=== PATIENT | male | born 1965 | race Caucasian/White ===

== ENCOUNTER 2021-05-14 00:06 | Emergency (ER) | payer SELFPAY ==
[2021-05-14 00:14] VITALS: BP 140/81; PULSE 67; RESP 18; TEMP 36.9; O2SAT 100
--- NOTE | 2021-05-14 01:09 | ED.EXTPRO ---
HPI - Extremity Problem General Chief complaint: Extremity Injury, Upper Stated complaint: swelling/numbness in arms Time Seen by Provider: 05/14/21 00:12 Source: patient Mode of arrival: Ambulatory History of Present Illness HPI Narrative: 56M smoker with noncontributory medical history presents with a chief complaint of popping and cracking in his shoulders and upper back for many months. He works a physical job and is constantly lifting and moving heavy objects and repetitive motion at work. He denies any specific trauma or injury. He denies any fever or chills. He states that often times at the end of the day his arms feel worn out and he gets some tingling which starts in his shoulders. He denies any numbness or weakness. He denies any radiation of pain. He states that this has been going on for many months. He denies those symptoms are any worse but the precipitating event that brought him in tonight was when he looked at his arm and noticed a quarter-sized bump on the dorsum of his forearm. He denied any pain, redness or red streaks. He states that it was there for ?a little while ?but had disappeared prior to his arrival. He is concerned that he has a blood clot. Patient denies any recent injury or trauma. He denies any history of blood clot. Review of Systems Review of Systems Narrative: GENERAL: Denies chills, fatigue, malaise, fever, sweats. HEENT: Denies sinus pain, ear pain, sore throat, difficulty swallowing, dizziness. RESPIRATORY: Denies dyspnea, cough, wheezing, hemoptysis, sputum. CARDIOVASCULAR: Denies chest pain, palpitations, orthopnea, edema, GASTROINTESTINAL: Denies nausea, vomiting, abdominal pain, diarrhea, constipation, melena. : Denies dysuria, frequency, incontinence, hematuria, urinary retention. MUSCULOSKELETAL: see HPI SKIN: Denies rash, skin lesions, or other NEUROLOGIC: Denies weakness, headache, numbness, change in speech, confusion, seizures, incoordination. PSYCHIATRIC: No concerning psychosocial issues. 12 point review of systems is negative except for those stated above Patient History Social History Smoking Status: Current every day smoker Smoking Status: Current every day smoker Exam Narrative Exam Narrative: GEN: AOx3 and in mild distress NECK: No midline pain or swelling, no symptoms with axial loading EYES: Pupils are equal, round, and reactive to light and accommodation. Extraoccular muscles are intact bilaterally. There is no subconjunctival hemorrhage or exudate. CHEST: Lungs are clear to auscultation bilaterally and free of wheezes, rales, or rhonchi. Heart rate is regular rhythm, there are no murmurs, clicks, rubs, or gallops. There is no chest wall tenderness. ABD: Abdomen is soft and nontender. There is no guarding or rebound. Bowel sounds are normal in all 4 quadrants. There is no mass or organomegaly. EXT: Full painless ROM of all extremities with no loss of sensation or strength. SKIN: No swelling, redness, induration, fluctuance or evidence of infection or DVT Warm, pink, and dry. No erythema or rash Initial Vital Signs Initial Vital Signs: Vital Signs Temperature 98.4 F 05/14/21 00:14 Pulse Rate 67 05/14/21 00:14 Respiratory Rate 18 05/14/21 00:14 Blood Pressure 140/81 05/14/21 00:14 Pulse Oximetry 100 05/14/21 00:14 Course Vital Signs Vital signs: Vital Signs - 8 hr 05/14/21 00:14 05/14/21 01:41 Temperature 98.4 F Pulse Rate 67 65 Respiratory Rate 18 18 Blood Pressure 140/81 138/80 Pulse Oximetry 100 100 MDM - Extremity (Nontraumatic) MDM Narrative Medical decision making narrative: Patient has a very reassuring physical exam as well as history. We had lengthy discussion about lack of history or physical to suggest any neuro surgical emergency. We discussed the possibility of obtaining imaging but sure the opinion that x-rays and CT are unlikely to be of much utility. Blood clot, infection considered but thought unlikely given lack of ongoing symptoms, any erythema, warmth or tenderness. Patient given extensive return precautions and questions have been answered to his apparent satisfaction Discharge Plan Departure Patient Disposition: Home Clinical Impression: Feared complaint without diagnosis Activity Restrictions/Additional Instructions: *You have been diagnosed with [possible arthritic change in your neck and shoulders, based on your history and exam there is no indication of blood clot or neuro surgical emergency *What to do: *Please continue to take your regular medications as directed. [ ] New medication prescriptions sent to your pharmacy: [ ] [ ] New medication written as a paper prescription [x ] No new medications given *Please follow up with your primary care provider in 2-3 days, call for an appointment. Let them know you were seen in the Emergency Department and that we ask that you be seen in follow up. We will electronically transmit a record of today's note if your PCP is in our system *If you do not have a primary care provider please contact the [facility] Resource line at [phone]. They will ask some questions about your medical history and help get you set up with a doctor in the community. *Return to Emergency Department if you should have any new, worsening or concerning symptoms, such as [fever greater than 101 F, shaking chills, worsening pain, persistent vomiting or other bothersome symptoms]
[2021-05-14 01:41] VITALS: BP 138/80; PULSE 65; RESP 18; O2SAT 100
== END 2021-05-14 01:42 | disposition home or self-care (01) ==
PROVIDERS: Emergency Provider Emergency Medicine
DX: M54.6 Pain in thoracic spine (principal); M25.512 Pain in left shoulder; M25.511 Pain in right shoulder
CPT/HCPCS: 99281

== ENCOUNTER 2021-05-30 16:41 | Emergency (ER) | payer SELFPAY ==
[2021-05-30 17:00] VITALS: BP 112/60; PULSE 60; RESP 18; TEMP 37.1; O2SAT 96; BMI 26.4
--- NOTE | 2021-05-30 17:02 | ED_ITS ---
HPI - General Adult General Chief complaint: Neck Pain/Injury Stated complaint: NECK PAIN, LAST VISIT CERVICAL NEURO Time Seen by Provider: 05/30/21 16:50 Source: patient Mode of arrival: Ambulatory History of Present Illness HPI narrative: Patient is a 56-year-old male. Was seen here in the emergency department a couple weeks ago for neck pain and back discomfort. He states that he was told at that time that he had cervical radiculopathy and was told to follow-up with a chiropractor. He has done that 1 time. He states that the chi ropractor popped his back and also his neck. He has an appointment with the chiropractor next week. He states that he is having his veins bulge out in his arms. He feels ?off ?has back discomfort. Feels like his body is numb. Related Data Previous Rx's Medication Instructions Recorded meloxicam 7.5 mg tablet (Mobic) 7.5 mg PO BID PRN #60 tab 05/30/21 Allergies Allergy/AdvReac Type Severity Reaction Status Date / Time No Known Drug Allergies Allergy Verified 05/30/21 17:13 Review of Systems Constitutional Constitutional: Denies fever(s) and Denies headache(s) Eyes Eyes: Reports as per HPI ENT Ears, Nose, Mouth, and Throat: Denies vertigo, Reports dizziness, Denies headache(s) and Denies sore throat Cardiovascular Cardiovascular: Reports system reviewed and no additional complaints, except as documented Respiratory Respiratory: Reports system reviewed and no additional complaints, except as documented Gastrointestinal Gastrointestinal: Reports system reviewed and no additional complaints, except as documented Musculoskeletal Musculoskeletal: Reports as per HPI Integumentary/Breasts Skin/Breast: Reports system reviewed and no additional complaints, except as documented Neurologic Neurologic: Denies vertigo, Reports dizziness and Denies headache(s) Hematologic/Lymphatic On Anticoagulants: No Allergic/Immunologic Allergic/Immunologic: Reports system reviewed and no additional complaints, except as documented Patient History Medical History Hypertension Social History Smoking Status: Current every day smoker Smoking Status: Current every day smoker Exam Initial Vital Signs Initial Vital Signs: Vital Signs Temperature 98.8 F 05/30/21 17:00 Pulse Rate 60 05/30/21 17:00 Respiratory Rate 18 05/30/21 17:00 Blood Pressure 112/60 05/30/21 17:00 Pulse Oximetry 96 05/30/21 17:00 Const General: cooperative, well developed and well groomed HENMT Head: normal to inspection and normocephalic Neck Neck: normal visual inspection Resp Effort & Inspection: normal respiratory effort Auscultation: clear to auscultation bilaterally Cardio Rate: regular rate Rhythm: regular rhythm Pulses: radial pulses present bilaterally GI Inspection: normal to inspection Back/Spine/Pelvis Back: normal to inspection and No back tenderness Cervical Spine: No cervical muscular tenderness and No cervical spinal tenderness Thoracic/Lumbar Spine: No paraspinal tenderness, No thoraco-lumbar spasm and No thoracic spinal tenderness Skin General: no rashes or lesions noted Neuro General: patient alert, patient awake and moves all extremities Speech: speech normal Extrem General: normal to inspection and capillary refill normal Psych Appearance: grossly normal and well kempt Course Orders Ordered: ED Orders 05/30/21 17:20 Basic Metabolic Panel Stat Complete Blood Count AUTO DIFF Stat Ethanol (ETOH) Stat Vital Signs Vital signs: Vital Signs - 8 hr 05/30/21 17:00 Temperature 98.8 F Pulse Rate 60 Respiratory Rate 18 Blood Pressure 112/60 Pulse Oximetry 96 Medical Decision Making Medical Records Medical records reviewed: Yes I reviewed the patient's medical records. Lab Data Lab results reviewed: Yes I reviewed the patient's lab results. Result diagrams: 05/30/21 17:20 05/30/21 17:20 Labs: Lab Results 05/30/21 05/30/21 05/30/21 Range/Units 17:20 17:20 17:20 WBC 7.6 (4.5-11.0) X10^3/uL RBC 4.18 L (4.5-5.9) X10^6/uL Hgb 13.1 L (13.5-17.5) g/dL Hct 37.8 L (41-53) % MCV 90.6 (80-100) fL MCH 31.4 (26-34) PG MCHC 34.6 (30-36) % RDW 14.8 (11.6-14.8) % Plt Count 286 (150-400) X10^3/uL Neut % (Auto) 67.2 (50-75) % Lymph % (Auto) 22.3 L (25-40) % [place] % (Auto) 8.3 (3-14) % Eos % (Auto) 1.1 L (2-4) % Baso % (Auto) 1.1 (0-2) % Neut # (Auto) 5100 (2130-7022) /uL Lymph # (Auto) 1700 (2368-6266) /uL [place] # (Auto) 600 (0-900) /uL Eos # (Auto) 100 (0-450) /uL Baso # (Auto) 100 (0-100) /uL Sodium 123 L (137-145) mmol/L Potassium 3.5 (3.4-5.1) mmol/L Chloride 85 L (98-107) mmol/L Carbon Dioxide 26 (22-32) mmol/L BUN 24 H (9-20) mg/dL Creatinine 1.31 H (0.66-1.25) mg/dL Estimated GFR 56.6 L (>60) mL/min BUN/Creatinine Ratio 18.3 (6-22) Glucose 125 H (70-100) mg/dL Calcium 9.1 (8.4-10.2) mg/dL Ethyl Alcohol 19 H ( - 10) mg/dL MDM Narrative Medical decision making narrative: Patient's physical exam today is very reassuring. He actually has no reproducible discomfort with palpation. I do not feel that his symptoms today are related to his sodium being 123. He is afebrile. Neurologically intact. Has a history of alcohol use. Plan will be is to start him on an anti-inflammatory. Will have him continue to go see the chiropractor. Informed him that he needed to talk with his primary doctor because of his symptoms do not improve that he needs to follow up with physical therapy he expressed understanding and agreement. Discharge Plan Departure Patient Disposition: Home Clinical Impression: Back strain Instructions: DI for Back Strain or Sprain Activity Restrictions/Additional Instructions: I recommend that you take the Mobic/meloxicam with some food. This medication could potentially take several days/weeks in order for to show any improvement of your symptoms. I recommend that you continue to follow up with the chiropractor. Also recommend that you contact your primary doctor as he may need a referral to see Physical therapy. Prescriptions: New meloxicam [Mobic] 7.5 mg tablet 7.5 mg PO BID PRN (Reason: muscle pain) Qty: 60 RF: 0
[2021-05-30 17:26] LABS: Add Manual Diff / Slide Review NO; Basophils Absolute Auto 100 /uL (0-100); Basophils Percent Auto 1.1 % (0-2); Eosinophils Absolute Auto 100 /uL (0-450); Eosinophils Percent Auto 1.1 % (2-4); Hematocrit 37.8 % (41-53); Hemoglobin 13.1 g/dL (13.5-17.5); Lymphocytes Absolute Auto 1700 /uL (1100-4500); Lymphocytes Percent Auto 22.3 % (25-40); Mean Corpuscular HGB Conc 34.6 % (30-36); Mean Corpuscular Hemoglobin 31.4 PG (26-34); Mean Corpuscular Volume 90.6 fL (80-100); Monocytes Absolute Auto 600 /uL (0-900); Monocytes Percent Auto 8.3 % (3-14); Neutrophils Absolute Auto 5100 /uL (1500-7000); Neutrophils Percent Auto 67.2 % (50-75); Platelet Count 286 X10^3/uL (150-400); Red Blood Cell Count 4.18 X10^6/uL (4.5-5.9); Red Cell Distribution Width 14.8 % (11.6-14.8); White Blood Cell Count 7.6 X10^3/uL (4.5-11.0)
[2021-05-30 17:39] LABS: BUN Creatinine Ratio 18.3 (6-22); Blood Urea Nitrogen 24 mg/dL (9-20); Calcium 9.1 mg/dL (8.4-10.2); Carbon Dioxide 26 mmol/L (22-32); Chloride 85 mmol/L (98-107); Estimated Glomerular Filt Rate 56.6 mL/min (>60); Ethanol (ETOH) 19 mg/dL; Glucose 125 mg/dL (70-100); HEMOLYSIS < 15 (0-50); Potassium 3.5 mmol/L (3.4-5.1); Sodium 123 mmol/L (137-145)
[2021-05-30 18:06] VITALS: BP 119/70; RESP 73; O2SAT 99
== END 2021-05-30 18:07 | disposition home or self-care (01) ==
PROVIDERS: Emergency Provider Emergency Medicine
DX: S39.012A Strain of muscle, fascia and tendon of lower back, initial encounter (principal); R20.0 Anesthesia of skin
CPT/HCPCS: 36415; 80048; 80320; 85025; 99283

== ENCOUNTER 2021-06-27 20:54 | Emergency (ER) | payer SELFPAY ==
[2021-06-27 20:58] VITALS: BP 135/71; PULSE 97; RESP 14; TEMP 36.4; O2SAT 98; BMI 25.0
--- NOTE | 2021-06-27 22:40 | ED_ITS ---
HPI - Back Pain/Injury General Chief Complaint: Back Pain/Injury Stated Complaint: cervical neuropathy, intense, cant stand it Time Seen by Provider: 06/27/21 22:31 Source: patient Limitations: no limitations History of Present Illness HPI Narrative: 56-year-old male daily smoker with a known history of both cervical and lumbar radiculopathy presents with a chief complaint of gradually worsening symptoms over many months. He had an MRI as an outpatient sometime ago which showed a lumbar radiculopathy which is perhaps amenable to surgical intervention. He presents today with gradually increasing symptoms in his neck which include burning pain down his neck and into his arms in the absence of any weakness. This has been going on for quite some time and is gradually worsening. Additionally patient has is similar pain in his lower back with radiation of pain into his hips and some tingling in the toes of each foot. He denies any weakness in arms or legs, no footdrop, no loss of control of bowel or bladder. He takes no blood thinners and has had no fever or chills. He denies any trauma. He has not been taking any medications though he had previously been prescribed meloxicam which he states does not work. Related Data Previous Rx's Medication Instructions Recorded meloxicam 7.5 mg tablet (Mobic) 7.5 mg PO BID PRN #60 tab 05/30/21 cyclobenzaprine 10 mg tablet 10 mg PO TID PRN #14 tab 06/27/21 gabapentin 300 mg capsule 300 mg PO BEDTIME #14 cap 06/27/21 hydrocodone 5 mg-acetaminophen 325 1 tab PO Q4-6H PRN #10 tab 06/27/21 mg tablet prednisone 10 mg tablet See Rx Instructions .ROUTE 06/27/21 .COMPLEX #30 tab Allergies Allergy/AdvReac Type Severity Reaction Status Date / Time No Known Drug Allergies Allergy Verified 06/27/21 20:58 Review of Systems Review of Systems Narrative: GENERAL: Denies chills, fatigue, malaise, fever, sweats. HEENT: Denies sinus pain, ear pain, sore throat, difficulty swallowing, dizziness. RESPIRATORY: Denies dyspnea, cough, wheezing, hemoptysis, sputum. CARDIOVASCULAR: Denies chest pain, palpitations, orthopnea, edema, GASTROINTESTINAL: Denies nausea, vomiting, abdominal pain, diarrhea, constipation, melena. : Denies dysuria, frequency, incontinence, hematuria, urinary retention. MUSCULOSKELETAL: See HPI SKIN: Denies rash, skin lesions, or other NEUROLOGIC: See HPI PSYCHIATRIC: No concerning psychosocial issues. 12 point review of systems is negative except for those stated above Patient History Medical History Hypertension Social History Smoking Status: Current every day smoker Smoking Status: Current every day smoker tobacco type: cigarettes alcohol intake frequency: 3 or more drinks per day Substance Use Type: does not use Exam Narrative Exam Narrative: GENERAL: [56 year old patient appears stated age. Well-developed patient, in mild distress. HEAD: Atraumatic. Normocephalic. EYES: Pupils equal round and reactive. Extraocular motions intact. No scleral icterus. No injection or drainage. ENT: Nose without bleeding, purulent drainage. Throat without erythema, tonsillar hypertrophy or exudate. Airway patent. NECK: Trachea midline. Non tender, no change with axial load, no crepitance, erythema, step-offs or other. CARDIOVASCULAR: Regular rate and rhythm without murmurs, gallops, or rubs. RESPIRATORY: Clear to auscultation. Breath sounds equal bilaterally. No wheezes, rales, or rhonchi. GASTROINTESTINAL: Abdomen soft, non-tender, nondistended. EXTREMITIES: No edema or joint tenderness. BACK: Nontender without deformity or crepitance. No flank tenderness. No saddle anesthesia, bilateral upper and lower extremities with 5/5 strength and intact reflexes. NEURO: AOx3. SKIN: No rash or erythema of visible areas Initial Vital Signs Initial Vital Signs: Vital Signs Temperature 97.6 F 06/27/21 20:58 Pulse Rate 97 H 06/27/21 20:58 Respiratory Rate 14 06/27/21 20:58 Blood Pressure 135/71 06/27/21 20:58 Pulse Oximetry 98 06/27/21 20:58 Course Orders Ordered: Discontinued Medications Cyclobenzaprine HCl (Cyclobenzaprine 10 Mg Prepack) 1 bottle MISC SEEINSTR ONE Stop: 06/27/21 22:48 Last Admin: 06/27/21 22:53 Dose: 1 bottle Documented by: KENNEDY Gabapentin (Gabapentin 300 Mg Capsule) 300 mg PO NOW ONE Stop: 06/27/21 22:48 Last Admin: 06/27/21 22:53 Dose: 300 mg Documented by: KENNEDY Prednisone (Prednisone 20 Mg Tablet) 40 mg PO NOW ONE Stop: 06/27/21 22:48 Last Admin: 06/27/21 22:53 Dose: 40 mg Documented by: KENNEDY Vital Signs Vital signs: Vital Signs - 8 hr 06/27/21 23:01 Pulse Rate 87 Respiratory Rate 17 Blood Pressure 129/76 Pulse Oximetry 98 MDM - Back Pain/Injury MDM Narrative Medical decision making narrative: Multiple etiologies of back pain considered including; Epidural abscess, cauda equina, mass occupying lesion, and other considered but no neuro surgical red flags are noted. Similar for cervical discomfort. Patient's symptoms have been evolving over many weeks. Patient walks in under his own power without any difficulty and has impressive and very reassuring physical exam. Return precautions given and questions answered to his apparent satisfaction Discharge Plan Departure Patient Disposition: Home Clinical Impression: Cervical radiculopathy, Chronic lumbar radiculopathy Instructions: DI for Lumbar Radiculopathy Activity Restrictions/Additional Instructions: *You have been diagnosed with [acute on chronic cervical and lumbar radiculopathies. Your exam is, thankfully, very reassuring and there is no evidence of the need for an emergent neuro surgical procedure. *What to do: *Please continue to take your regular medications as directed. [x ] New medication prescriptions sent to your pharmacy: [[facility] in [place] ] [ ] New medication written as a paper prescription [ ] No new medications given *Please follow up with your primary care provider in 2-3 days, call for an appointment. Let them know you were seen in the Emergency Department and that we ask that you be seen in follow up. We will electronically transmit a record of today's note if your PCP is in our system *If you do not have a primary care provider please contact the [facility] Resource line at [phone]. They will ask some questions about your medical history and help get you set up with a doctor in the community. *Return to Emergency Department if you should have any new, worsening or concerning symptoms, such as [fever greater than 101 F, shaking chills, worsening pain, persistent vomiting, weakness in any of your extremities, loss of control of bowel or bladder other bothersome symptoms] You have been prescribed a short course of narcotic medications. These are potentially dangerous and addictive medications that should be used carefully. While on these medications you cannot drive or operate heavy machinery. Additio sommer, you cannot sign legal documents or perform any duties such as this. 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 Please understand that we cannot provide further refills of narcotics or controlled substances through the ED and your pain management will need to be through your Primary Care Provider Prescriptions: New cyclobenzaprine 10 mg tablet 10 mg PO TID PRN (Reason: muscle spasm) Qty: 14 RF: 0 prednisone 10 mg tablet See Rx Instructions .ROUTE .COMPLEX Qty: 30 RF: 0 hydrocodone-acetaminophen 5-325 mg tablet 1 tab PO Q4-6H PRN (Reason: pain) Qty: 10 RF: 0 gabapentin 300 mg capsule 300 mg PO BEDTIME Qty: 14 RF: 0 No Action meloxicam [Mobic] 7.5 mg tablet 7.5 mg PO BID PRN (Reason: muscle pain) Qty: 60 RF: 0 Referrals: Chano Escudero DO [Physician] -
[2021-06-27] MEDS: predniSONE 20 MG TABLET 40 MG PO (22:53)
[2021-06-27] MEDS: GABAPENTIN 300 MG CAPSULE PO (22:53)
[2021-06-27] MEDS: CYCLOBENZAPRINE 10 MG PREPACK 1 BOTTLE MISC (22:53)
[2021-06-27 23:01] VITALS: BP 129/76; PULSE 87; RESP 17; O2SAT 98
== END 2021-06-27 23:03 | disposition home or self-care (01) ==
PROVIDERS: Emergency Provider Emergency Medicine
DX: M54.12 Radiculopathy, cervical region (principal); M54.16 Radiculopathy, lumbar region
CPT/HCPCS: 99283

== ENCOUNTER 2021-09-15 15:39 | Emergency (ER) | payer BC, SELFPAY ==
[2021-09-15 15:43] VITALS: BP 130/84; PULSE 89; RESP 14; TEMP 36.5; O2SAT 99; BMI 23.7
[2021-09-15 17:10] VITALS: BP 144/78
[2021-09-15 17:11] VITALS: PULSE 75; O2SAT 99
[2021-09-15 17:30] VITALS: BP 125/81; PULSE 75; O2SAT 97
[2021-09-15 17:33] LABS: Add Manual Diff / Slide Review NO; Basophils Absolute Auto 100 /uL (0-100); Basophils Percent Auto 1.1 % (0-2); Eosinophils Absolute Auto 100 /uL (0-450); Hematocrit 39.2 % (41-53); Hemoglobin 13.7 g/dL (13.5-17.5); Lymphocytes Absolute Auto 1900 /uL (1100-4500); Lymphocytes Percent Auto 25.5 % (25-40); Mean Corpuscular Hemoglobin 32.2 PG (26-34); Mean Corpuscular Volume 92.2 fL (80-100); Monocytes Absolute Auto 800 /uL (0-900); Monocytes Percent Auto 10.8 % (3-14); Neutrophils Absolute Auto 4600 /uL (1500-7000); Neutrophils Percent Auto 61.6 % (50-75); Platelet Count 175 X10^3/uL (150-400); Red Blood Cell Count 4.25 X10^6/uL (4.5-5.9); Red Cell Distribution Width 15.7 % (11.6-14.8); White Blood Cell Count 7.4 X10^3/uL (4.5-11.0)
[2021-09-15 17:44] LABS: Alanine Aminotransferase 157 IU/L (<50); Albumin 4.9 g/dL (3.5-5.0); Albumin Globulin Ratio 1.3 (1.0-2.8); Alkaline Phosphatase 58 U/L (38-126); Aspartate Aminotransferase 128 IU/L (17-59); BUN Creatinine Ratio 15.4 (6-22); Bilirubin Total 0.8 mg/dL (0.2-1.3); Blood Urea Nitrogen 14 mg/dL (9-20); Calcium 9.4 mg/dL (8.4-10.2); Carbon Dioxide 35 mmol/L (22-32); Chloride 89 mmol/L (98-107); Creatine Kinase 90 U/L (55-170); Estimated Glomerular Filt Rate > 60.0 mL/min (>60); Globulin 3.8 g/dL (1.7-4.1); Glucose 82 mg/dL (70-100); HEMOLYSIS < 15 (0-50); Lipase 359 U/L (23-300); Magnesium 1.8 mg/dL (1.6-2.3); Sodium 129 mmol/L (137-145); Total Protein 8.7 g/dL (6.3-8.2)
[2021-09-15 17:45] LABS: INR 0.9 (0.9-1.3); Prothrombin Time 10.4 SECONDS (10.1-12.7)
[2021-09-15 17:48] LABS: PTT Partial Thromboplastin Tim 33 SECONDS (26.4-36.2)
[2021-09-15 17:56] LABS: Troponin I < 0.012 ng/mL (0.01-0.034)
[2021-09-15 18:00] VITALS: BP 136/72; PULSE 73; O2SAT 95
--- NOTE | 2021-09-15 18:00 | ED_ITS ---
HPI - Recheck/Abnormal Lab/Rx General Chief Complaint: Recheck/Abnormal Lab/Rx Stated Complaint: sent by MD office for low sodium, anemia Time Seen by Provider: 09/15/21 17:57 Source: patient Mode of arrival: Ambulatory Related Data Previous Rx's Medication Instructions Recorded meloxicam 7.5 mg tablet (Mobic) 7.5 mg PO BID PRN #60 tab 05/30/21 cyclobenzaprine 10 mg tablet 10 mg PO TID PRN #14 tab 06/27/21 gabapentin 300 mg capsule 300 mg PO BEDTIME #14 cap 06/27/21 hydrocodone 5 mg-acetaminophen 325 1 tab PO Q4-6H PRN #10 tab 06/27/21 mg tablet prednisone 10 mg tablet See Rx Instructions .ROUTE 06/27/21 .COMPLEX #30 tab Allergies Allergy/AdvReac Type Severity Reaction Status Date / Time No Known Drug Allergies Allergy Verified 09/15/21 15:43 Patient History Medical History Hypertension Social History Smoking Status: Current every day smoker Smoking Status: Current every day smoker tobacco type: cigarettes alcohol intake frequency: 3 or more drinks per day Substance Use Type: does not use Exam Initial Vital Signs Initial Vital Signs: Vital Signs Temperature 97.7 F 09/15/21 15:43 Pulse Rate 89 09/15/21 15:43 Respiratory Rate 14 09/15/21 15:43 Blood Pressure 130/84 09/15/21 15:43 Pulse Oximetry 99 09/15/21 15:43 Course Orders Ordered: ED Orders 09/15/21 17:20 Complete Blood Count AUTO DIFF Stat Comprehensive Metabolic Panel Stat Lipase Stat Magnesium Stat Partial Thromboplastin Time Stat Prothrombin Time INR Stat Troponin & CK Cardiac Panel Stat Vital Signs Vital signs: Vital Signs - 8 hr 09/15/21 15:43 09/15/21 17:10 09/15/21 17:11 Temperature 97.7 F Pulse Rate 89 75 Respiratory Rate 14 Blood Pressure 130/84 144/78 H Pulse Oximetry 99 99 09/15/21 17:30 09/15/21 18:00 09/15/21 18:30 Temperature Pulse Rate 75 73 69 Respiratory Rate 18 Blood Pressure 125/81 136/72 135/69 Pulse Oximetry 97 95 96 MDM - Recheck/Abnormal Lab/Rx Lab Data Result diagrams: 09/15/21 17:20 09/15/21 17:20 Labs: Lab Results 09/15/21 09/15/21 09/15/21 Range/Units 17:20 17:20 17:20 WBC 7.4 (4.5-11.0) X10^3/uL RBC 4.25 L (4.5-5.9) X10^6/uL Hgb 13.7 (13.5-17.5) g/dL Hct 39.2 L (41-53) % MCV 92.2 (80-100) fL MCH 32.2 (26-34) PG MCHC 35.0 (30-36) % RDW 15.7 H (11.6-14.8) % Plt Count 175 (150-400) X10^3/uL Neut % (Auto) 61.6 (50-75) % Lymph % (Auto) 25.5 (25-40) % [place] % (Auto) 10.8 (3-14) % Eos % (Auto) 1.0 L (2-4) % Baso % (Auto) 1.1 (0-2) % Neut # (Auto) 4600 (7691-7789) /uL Lymph # (Auto) 1900 (8377-3905) /uL [place] # (Auto) 800 (0-900) /uL Eos # (Auto) 100 (0-450) /uL Baso # (Auto) 100 (0-100) /uL PT 10.4 (10.1-12.7) SECONDS INR 0.9 (0.9-1.3) APTT 33 (26.4-36.2) SECONDS Sodium 129 L (137-145) mmol/L Potassium 3.0 L (3.4-5.1) mmol/L Chloride 89 L (98-107) mmol/L Carbon Dioxide 35 H (22-32) mmol/L BUN 14 (9-20) mg/dL Creatinine 0.91 (0.66-1.25) mg/dL Estimated GFR > 60.0 (>60) mL/min BUN/Creatinine Ratio 15.4 (6-22) Glucose 82 (70-100) mg/dL Calcium 9.4 (8.4-10.2) mg/dL Magnesium 1.8 (1.6-2.3) mg/dL Total Bilirubin 0.8 (0.2-1.3) mg/dL AST 128 H (17-59) IU/L ALT 157 H (<50) IU/L Alkaline Phosphatase 58 (38-126) U/L Total Creatine Kinase 90 (55-170) U/L CK-MB (CK-2) TNP CK-MB (CK-2) Rel Index TNP Troponin I < 0.012 (0.01-0.034) ng/mL Total Protein 8.7 H (6.3-8.2) g/dL Albumin 4.9 (3.5-5.0) g/dL Globulin 3.8 (1.7-4.1) g/dL Albumin/Globulin Ratio 1.3 (1.0-2.8) Lipase 359 H (23-300) U/L Discharge Plan Departure Patient Disposition: Home Clinical Impression: COVID-19 Instructions: DI for COVID-19 (Suspected or Confirmed ) Activity Restrictions/Additional Instructions: Based on your labs today no intervention is needed secondary to your blood counts were your electrolytes. Your COVID positive which most likely explains your fatigue and cough. Contact your primary doctor for follow-up. Follow all of the current CDC guidelines with regard to quarantine. Return to the emergency department for any worsening problems breathing Prescriptions: No Action cyclobenzaprine 10 mg tablet 10 mg PO TID PRN (Reason: muscle spasm) Qty: 14 0RF prednisone 10 mg tablet See Rx Instructions .ROUTE .COMPLEX Qty: 30 0RF Rx Instructions: Day 1,2,3: 40mg PO Daily Day 4,5,6: 30mg PO Daily Day 7,8,9: 20mg PO Daily Day 10,11,12: 10mg PO Daily #30 hydrocodone-acetaminophen 5-325 mg tablet 1 tab PO Q4-6H PRN (Reason: pain) Qty: 10 0RF gabapentin 300 mg capsule 300 mg PO BEDTIME Qty: 14 0RF meloxicam [Mobic] 7.5 mg tablet 7.5 mg PO BID PRN (Reason: muscle pain) Qty: 60 0RF
--- NOTE | 2021-09-15 18:11 | ED.GENADULT ---
HPI - General Adult General Chief complaint: Recheck/Abnormal Lab/Rx Stated complaint: sent by MD office for low sodium, anemia Time Seen by Provider: 09/15/21 17:57 Source: patient Mode of arrival: Ambulatory History of Present Illness HPI narrative: 56-year-old male. Was seen by his primary doctor recently. Was diagnosed with COVID yesterday. Had labs drawn. Has been having a couple days of weakness and fatigue and body aches. Received phone call today by his primary doctor and told to come to the emergency department because of a low sodium and also anemia. No chest pain no shortness of breath. Patient is unvaccinated against COVID-19. He states that the labs were drawn at an outside facility. Related Data Previous Rx's Medication Instructions Recorded meloxicam 7.5 mg tablet (Mobic) 7.5 mg PO BID PRN #60 tab 05/30/21 cyclobenzaprine 10 mg tablet 10 mg PO TID PRN #14 tab 06/27/21 gabapentin 300 mg capsule 300 mg PO BEDTIME #14 cap 06/27/21 hydrocodone 5 mg-acetaminophen 325 1 tab PO Q4-6H PRN #10 tab 06/27/21 mg tablet prednisone 10 mg tablet See Rx Instructions .ROUTE 06/27/21 .COMPLEX #30 tab Allergies Allergy/AdvReac Type Severity Reaction Status Date / Time No Known Drug Allergies Allergy Verified 09/15/21 15:43 Review of Systems Constitutional Constitutional: Reports fatigue and Reports lethargy Cardiovascular Cardiovascular: Reports as per HPI and Reports system reviewed and no additional complaints, except as documented Respiratory Respiratory: Reports as per HPI and Reports system reviewed and no additional complaints, except as documented Gastrointestinal Gastrointestinal: Reports system reviewed and no additional complaints, except as documented Neurologic Neurologic: Reports system reviewed and no additional complaints, except as documented Endocrine Endocrine: Reports fatigue Hematologic/Lymphatic On Anticoagulants: No Allergic/Immunologic Allergic/Immunologic: Reports system reviewed and no additional complaints, except as documented Patient History Medical History Hypertension Social History Smoking Status: Current every day smoker Smoking Status: Current every day smoker tobacco type: cigarettes alcohol intake frequency: 3 or more drinks per day Substance Use Type: does not use Exam Initial Vital Signs Initial Vital Signs: Vital Signs Temperature 97.7 F 09/15/21 15:43 Pulse Rate 89 09/15/21 15:43 Respiratory Rate 14 09/15/21 15:43 Blood Pressure 130/84 09/15/21 15:43 Pulse Oximetry 99 09/15/21 15:43 HENMT Head: normal to inspection and normocephalic Resp Effort & Inspection: normal respiratory effort Auscultation: clear to auscultation bilaterally Cardio Rate: regular rate Rhythm: regular rhythm GI Inspection: normal to inspection Skin General: no rashes or lesions noted Neuro General: patient alert, patient awake and moves all extremities Extrem General: normal to inspection and capillary refill normal Psych Appearance: grossly normal and well kempt Course Orders Ordered: ED Orders 09/15/21 17:20 Complete Blood Count AUTO DIFF Stat Comprehensive Metabolic Panel Stat Lipase Stat Magnesium Stat Partial Thromboplastin Time Stat Prothrombin Time INR Stat Troponin & CK Cardiac Panel Stat Vital Signs Vital signs: Vital Signs - 8 hr 09/15/21 15:43 09/15/21 17:10 09/15/21 17:11 Temperature 97.7 F Pulse Rate 89 75 Respiratory Rate 14 Blood Pressure 130/84 144/78 H Pulse Oximetry 99 99 09/15/21 17:30 Temperature Pulse Rate 75 Respiratory Rate Blood Pressure 125/81 Pulse Oximetry 97 Medical Decision Making Lab Data Lab results reviewed: Yes I reviewed the patient's lab results. Result diagrams: 09/15/21 17:20 09/15/21 17:20 Labs: Lab Results 09/15/21 09/15/21 09/15/21 Range/Units 17:20 17:20 17:20 WBC 7.4 (4.5-11.0) X10^3/uL RBC 4.25 L (4.5-5.9) X10^6/uL Hgb 13.7 (13.5-17.5) g/dL Hct 39.2 L (41-53) % MCV 92.2 (80-100) fL MCH 32.2 (26-34) PG MCHC 35.0 (30-36) % RDW 15.7 H (11.6-14.8) % Plt Count 175 (150-400) X10^3/uL Neut % (Auto) 61.6 (50-75) % Lymph % (Auto) 25.5 (25-40) % [place] % (Auto) 10.8 (3-14) % Eos % (Auto) 1.0 L (2-4) % Baso % (Auto) 1.1 (0-2) % Neut # (Auto) 4600 (7088-8402) /uL Lymph # (Auto) 1900 (1496-5470) /uL [place] # (Auto) 800 (0-900) /uL Eos # (Auto) 100 (0-450) /uL Baso # (Auto) 100 (0-100) /uL PT 10.4 (10.1-12.7) SECONDS INR 0.9 (0.9-1.3) APTT 33 (26.4-36.2) SECONDS Sodium 129 L (137-145) mmol/L Potassium 3.0 L (3.4-5.1) mmol/L Chloride 89 L (98-107) mmol/L Carbon Dioxide 35 H (22-32) mmol/L BUN 14 (9-20) mg/dL Creatinine 0.91 (0.66-1.25) mg/dL Estimated GFR > 60.0 (>60) mL/min BUN/Creatinine Ratio 15.4 (6-22) Glucose 82 (70-100) mg/dL Calcium 9.4 (8.4-10.2) mg/dL Magnesium 1.8 (1.6-2.3) mg/dL Total Bilirubin 0.8 (0.2-1.3) mg/dL AST 128 H (17-59) IU/L ALT 157 H (<50) IU/L Alkaline Phosphatase 58 (38-126) U/L Total Creatine Kinase 90 (55-170) U/L CK-MB (CK-2) TNP CK-MB (CK-2) Rel Index TNP Troponin I < 0.012 (0.01-0.034) ng/mL Total Protein 8.7 H (6.3-8.2) g/dL Albumin 4.9 (3.5-5.0) g/dL Globulin 3.8 (1.7-4.1) g/dL Albumin/Globulin Ratio 1.3 (1.0-2.8) Lipase 359 H (23-300) U/L [facility] Narrative Medical decision making narrative: Patient is not hypoxic, not hypotensive, not tachycardic, not anemic. Is slightly hyponatremic but needs no intervention here in the emergency department. Patient is COVID positive. This certainly could explain his fatigue another presenting symptoms. No indication for blood transfusion. No indication for treatment of his mildly low sodium. I do not have the labs from outside facility to compare. Patient was informed that no further intervention is needed in the emergency department that he should contact his primary doctor for a follow-up. He expressed understanding. Discharge Plan Departure Patient Disposition: Home Clinical Impression: COVID-19 Instructions: DI for COVID-19 (Suspected or Confirmed ) Activity Restrictions/Additional Instructions: Based on your labs today no intervention is needed secondary to your blood counts were your electrolytes. Your COVID positive which most likely explains your fatigue and cough. Contact your primary doctor for follow-up. Follow all of the current CDC guidelines with regard to quarantine. Return to the emergency department for any worsening problems breathing Prescriptions: No Action cyclobenzaprine 10 mg tablet 10 mg PO TID PRN (Reason: muscle spasm) Qty: 14 0RF prednisone 10 mg tablet See Rx Instructions .ROUTE .COMPLEX Qty: 30 0RF Rx Instructions: Day 1,2,3: 40mg PO Daily Day 4,5,6: 30mg PO Daily Day 7,8,9: 20mg PO Daily Day 10,11,12: 10mg PO Daily #30 hydrocodone-acetaminophen 5-325 mg tablet 1 tab PO Q4-6H PRN (Reason: pain) Qty: 10 0RF gabapentin 300 mg capsule 300 mg PO BEDTIME Qty: 14 0RF meloxicam [Mobic] 7.5 mg tablet 7.5 mg PO BID PRN (Reason: muscle pain) Qty: 60 0RF
[2021-09-15 18:30] VITALS: BP 135/69; PULSE 69; RESP 18; O2SAT 96
== END 2021-09-15 18:52 | disposition home or self-care (01) ==
PROVIDERS: Emergency Medicine; Emergency Provider Emergency Medicine
DX: U07.1 COVID-19 (principal); E87.1 Hypo-osmolality and hyponatremia
CPT/HCPCS: 36415; 80053; 82550; 83690; 83735; 84484; 85025; 85610; 85730; 99283